=== PATIENT | female | born 1955 | race Caucasian/White ===

== ENCOUNTER 2020-08-11 17:08 | Emergency (ER) | payer BC, SELFPAY ==
[2020-08-11 17:30] VITALS: BP 191/115; PULSE 103; RESP 22; TEMP 36.5; O2SAT 100
--- NOTE | 2020-08-11 17:37 | ED.GENADULT ---
HPI - General Adult General Chief complaint: Dental/Oral Stated complaint: jaw pain Time Seen by Provider: 08/11/20 17:42 Source: patient and RN notes reviewed Mode of arrival: ambulatory Limitations: no limitations History of Present Illness HPI narrative: 65-year-old female presents with complaints of upper and lower dental pain for the past 4 days. Mar reports increasing symptoms with LT lower dental pain and jaw swelling. Tylenol and Ibuprofen, last today at 08:00 without relief. Denies any drainage. No neck swelling. No limitation with speaking or swallowing. Has history of dental caries. No fever. Has not seen a dentist recently. No dental trauma. No oral lesions. Exacerbating factors consist of chewing, eating, and drinking cold items. No relieving factors. No dentures or bridges. Tolerating liquids well. Remains active. The patient reports she have not been diagnosed with COVID-19. The patient reports she is not waiting for the results of a COVID-19 lab test. The patient reports she do not have chills, weakness, or fatigue. The patient reports she do not have a new or worsening cough or shortness of breath. Denies chest pain. The patient reports she do not have any rhinorrhea, congestion, sore throat, loss of taste or smell, nausea, vomiting, abdominal pain, and diarrhea. Denies recent traveling. Denies concerns for COVID-19 or exposures been home with limited outdoor exposure except for essential household needs and return home. At this time, patient is not suspected of having COVID-19. Some parts of this dictation were generated by voice recognition software and may contain typographical and/or grammatical inaccuracies. Related Data Allergies Allergy/AdvReac Type Severity Reaction Status Date / Time No Known Allergies Allergy Verified 08/11/20 17:26 Review of Systems Review of Systems: Narrative: CONSTITUTIONAL: Denies fever, chills, sweats. EYES: Denies visual changes, redness, discharge. ENT: Denies rhinorrhea, congestion, sore throat, otalgia. Complains of LT upper and lower dental pain. CARDIOVASCULAR: Denies chest pain, palpitations, edema. RESPIRATORY: Denies dyspnea, wheezing, cough. GASTROINTESTINAL: Denies abdominal pain, nausea, vomiting, diarrhea. SKIN: Denies rash or itching. MUSCULOSKELETAL: Denies acute back pain, joint pain, or myalgia. NEUROLOGIC: Denies numbness or focal weakness. PSYCHIATRIC: Denies anxiety or depression. All systems reviewed & are unremarkable except as noted in HPI and below. [facility] Past Medical History Medical History (Updated 08/12/20 @ 00:01 by Shirley Hartley) Hypertension Knee pain Morbid obesity Vaginal delivery X3 Surgical History Surgical History (Updated 08/11/20 @ 18:18 by IRENE Mueller) History of knee surgery RT Family History Family History (Updated 08/11/20 @ 18:20 by IRENE Mueller) Father , Killed in line of duty (military police officer) No problems noted. Mother Hypertension Social History Social History (Updated 08/11/20 @ 18:20 by IRENE Mueller) Smoking status: Never smoker Tobacco type: cigarettes Second hand tobacco smoke exposure: Yes (daughter) Alcohol intake: former Alcohol use details: 2015 Substance use: never Living arrangements: with family Occupation/Education: unemployed Gender identity (if verbalized by the patient): Female Sexual Orientation (if Verbalized by the Patient): Straight or Heterosexual Comments At time of signature, agree with nurse past medical, surgical, social, and family history. There is no relevant family history pertinent to the presenting complaint. Exam Narrative: Exam Narrative: GENERAL: This is a well-nourished, well-developed patient, in no apparent distress. Talks in full sentences ans ambulates with steady gait without dyspnea. HEAD: Normocephalic, atraumatic. EYES: PERRL. Sclera clear/white. Vision i
[2020-08-11] MEDS: KETOROLAC (*BKC) 60 MG/2 ML VIAL IM (17:53)
[2020-08-11 18:30] VITALS: BP 166/116; PULSE 107; RESP 20; O2SAT 98
== END 2020-08-11 18:30 | disposition home or self-care (01) ==
PROVIDERS: Emergency Provider Nurse Practitioner Family; PCP Family Medicine
DX: K02.9 Dental caries, unspecified (principal); K04.7 Periapical abscess without sinus; I10 Essential (primary) hypertension; E66.01 Morbid (severe) obesity due to excess calories; Z68.42 Body mass index [BMI] 45.0-49.9, adult
CPT/HCPCS: 96372; 99213; G0463; J1885

== ENCOUNTER 2022-06-27 16:20 | Emergency (ER) | payer BC, SELFPAY ==
[2022-06-27 16:36] VITALS: BP 211/97; PULSE 110; RESP 22; TEMP 37.9; O2SAT 96
--- NOTE | 2022-06-27 17:10 | ED.URI ---
HPI - URI/Sore Throat General Chief Complaint: Upper Respiratory Infection Stated Complaint: Sore Throat Time Seen by Provider: 06/27/22 17:10 Source: patient, RN notes reviewed and old records reviewed Mode of arrival: ambulatory Limitations: no limitations History of Present Illness HPI Narrative: 67-year-old female presents to the [facility] with complaints of a sore throat. Patient reports that is progressively been getting worse since Thursday, 4 days. Has taken Tylenol with no relief. Patient has a history of hypertension, sees a rfp writer on a regular basis. Reports that she was able to only swallow 1 of her blood pressure medications because of the pain of her throat. Tried calling primary care provider today for an appointment, unable to get in. Onset (ago): day(s) (4) Related Data Home Medications Medication Instructions Recorded Confirmed aspirin 81 mg tablet 81 mg PO DAILY 06/27/22 06/27/22 atorvastatin 10 mg tablet mg 06/27/22 hydrochlorothiazide 50 mg tablet mg 06/27/22 losartan 100 mg tablet mg 06/27/22 meloxicam 15 mg tablet mg 06/27/22 venlafaxine 75 mg capsule,extended mg PO 06/27/22 release 24 hr Allergies Allergy/AdvReac Type Severity Reaction Status Date / Time No Known Allergies Allergy Verified 06/27/22 16:46 Review of Systems Review of Systems: All systems reviewed & are unremarkable except as noted in HPI and below Constitutional: Constitutional: Reports no additional constitutional complaints Eyes: Eyes: Reports no additional eye complaints ENT: Reports as per HPI and Reports sore throat Cardiovascular: Cardiovascular: Reports no additional cardiovascular complaints, Denies chest pain and Denies dyspnea Respiratory: Respiratory: Reports no additional respiratory complaints, Denies chest congestion, Denies cough and Denies dyspnea Gastrointestinal: Gastrointestinal: Reports no additional gastrointestinal complaints, Denies abdominal pain, Denies nausea and Denies vomiting Musculoskeletal: Musculoskeletal: Reports no additional musculoskeletal complaints Integumentary/Breasts: Skin/Breast: Reports system reviewed and no additional complaints, except as docu Neurologic: Reports system reviewed and no additional complaints, except as documented Psychiatric: Psychiatric: Reports no additional psychiatric complaints Allergic/Immunologic: Allergic/Immunologic: Reports no additional allergic/immunologic complaints PMFSH Past Medical History Medical History Hypertension Knee pain Morbid obesity Vaginal delivery X3 Surgical History Surgical History History of knee surgery RT Family History Family History Father , Killed in line of duty (police reserves commander) No problems noted. Mother Hypertension Social History Social History Smoking status: Never smoker Tobacco type: cigarettes Second hand tobacco smoke exposure: Yes (daughter) Alcohol intake: former Alcohol use details: 2015 Substance use: never Living arrangements: with family Occupation/Education: unemployed Gender identity (if verbalized by the patient): Female Sexual Orientation (if Verbalized by the Patient): Straight or Heterosexual Comments At the time of my signature, I reviewed and agree with the nursing past medical, surgical, social, and family history. There is no relevant family history pertinent to the patient complaint. Exam Const: General: cooperative, healthy appearing, comfortable, no acute distress, well developed, alert and well nourished Nutritional Appearance: well nourished Orientation/consciousness: patient oriented x3 Limitations: no limitations HENMT: Head: normal to inspection Ears: hearing grossly normal bilaterally and external
[2022-06-27 17:35] VITALS: BP 200/90
== END 2022-06-27 17:35 | disposition home or self-care (01) ==
PROVIDERS: Emergency Provider Nurse Practitioner
DX: J02.0 Streptococcal pharyngitis (principal); I10 Essential (primary) hypertension; Z79.82 Long term (current) use of aspirin; E66.01 Morbid (severe) obesity due to excess calories; Z68.42 Body mass index [BMI] 45.0-49.9, adult
CPT/HCPCS: 87880; 99213; G0463